=== PATIENT | male | born 1995 | race African-American/Black ===

== ENCOUNTER 2021-02-06 23:13 | Emergency (ER) | payer OTHER ==
[~2021-02-06] VITALS: Ht 167.6 cm; Wt 92.7 kg
[2021-02-06 23:14] VITALS: BP 138/83
--- NOTE | 2021-02-07 00:38 | REPVR ---
PROCEDURE INFORMATION: Exam: XR Right Shoulder Exam date and time: 02/06/2021 11:42 PM Age: 25 years old Clinical indication: Other: Numbness in shoulder; Additional info: Carrying 90 lbs on back and has pain in shoulder TECHNIQUE: Imaging protocol: XR Right shoulder. Views: 2 or more views. COMPARISON: No relevant prior studies available. FINDINGS: Bones/joints: Normal. Soft tissues: Normal. IMPRESSION: No acute findings. Electronically signed by: Jason Springer On 02/07/2021 00:38:22 AM
[2021-02-07] MEDS ORDERED: methocarbamoL 750 MG TAB PO ONE (01:50)
[2021-02-07] MEDS ORDERED: KETOROLAC 60MG 2ML VIAL IM ONE (01:50)
[2021-02-07] MEDS ORDERED: LIDOCAINE 5% (LIDODERM) PATCH TD ONE (01:50)
[2021-02-07] MEDS ORDERED: diazePAM 10 MG TAB PO ONE (01:50)
[2021-02-07] MEDS ORDERED: METH-1165 PO (01:52)
[2021-02-07] MEDS ORDERED: NAPR-837 PO (01:52)
[2021-02-07] MEDS ORDERED: ASPE4PAD TOP (01:52)
[2021-02-07] MEDS ORDERED: **NOTE PATIENT COMMENT** MISC XX SCH (21:00)
== END 2021-02-07 02:07 | disposition home or self-care (01) ==
LOC: M ED 23:13
DX: R53.1 Weakness (principal)
CPT/HCPCS: 73030; 99282; J1885

== ENCOUNTER 2022-12-27 01:27 | Emergency (ER) | payer OTHER ==
[~2022-12-27] VITALS: Ht 188 cm; Wt 90.9 kg
[~2022-12-27 01:27] MED LIST: ASPE4PAD TOP; METH-1165 PO; NAPR-837 PO
[2022-12-27 01:48] LABS: VENOUS HCO3 24.6 MEQ/L (23.0-27.0); VENOUS O2 SATURATION 94.3 % (60.0-80.0); VENOUS PARTIAL PRESSURE O2 76.4 mmHg (30.0-50.0); VENOUS PH 7.318 UNITS (7.330-7.430); VENOUS STANDARD HCO3 22.8 MEQ/L; VENOUS TOTAL CO2 26.1 MEQ/L (24.0-28.0)
[2022-12-27 01:58] LABS: BASO % 0.2 % (0.0-1.0); EOS # 0.1 10^3/uL (0.0-0.5); EOS % 0.6 % (0.0-3.0); HEMATOCRIT 38.7 % (42.0-52.0); HEMOGLOBIN 12.1 g/dl (13.5-17.5); LYMPH # 2.6 10^3/uL (1.5-5.0); LYMPH % 30.5 % (24.0-44.0); MEAN CORPUSCULAR HGB CONC 31.3 g/dl (32.0-36.5); MEAN CORPUSCULAR VOLUME 92.8 fl (80.0-96.0); MONO # 0.7 10^3/uL (0.0-0.8); NEUTROPHILS # 5.1 10^3/uL (1.5-8.5); NEUTROPHILS % 60.3 % (36.0-66.0); PLATELET COUNT, AUTOMATED 198 10^3/uL (150-450); RED BLOOD COUNT 4.17 10^6/uL (4.30-6.10); WHITE BLOOD COUNT 8.4 10^3/uL (4.0-10.0)
[2022-12-27 02:21] LABS: ETHYL ALCOHOL (ETHANOL) 0.005 % (0.000-0.010)
[2022-12-27 02:23] LABS: ACETAMINOPHEN LEVEL < 2.0 UG/ML (10.0-20.0); ALKALINE PHOSPHATASE 93 U/L (46-116); ALT/SGPT 28 U/L (7.0-40); AST/SGOT 26 U/L (<34); BILIRUBIN,DIRECT 0.1 MG/DL (<0.4); BILIRUBIN,TOTAL 0.4 MG/DL (0.3-1.2); BLOOD UREA NITROGEN 14 MG/DL (9-23); CALCIUM LEVEL 7.8 MG/DL (8.5-10.1); CARBON DIOXIDE LEVEL 25 MMOL/L (20-31); CHLORIDE LEVEL 109 MMOL/L (98-107); CREATININE FOR GFR 1.17 MG/DL (0.70-1.30); GLOMERULAR FILTRATION RATE > 60.0 (>60); GLUCOSE, FASTING 127 MG/DL (60-100); POTASSIUM SERUM 4.1 MMOL/L (3.5-5.1); SALICYLATE LEVEL < 3.0 MG/DL (<30); SODIUM LEVEL 140 MMOL/L (136-145); TOTAL PROTEIN 5.9 G/DL (5.7-8.2)
[2022-12-27 02:25] LABS: THYROID STIMULATING HORMONE 0.634 uIU/ML (0.55-4.78)
[2022-12-27 02:26] LABS: AMPHETAMINES LEVEL URINE NEGATIVE (NEGATIVE); BARBITURATES URINE NEGATIVE (NEGATIVE); BENZODIAZEPINES URINE NEGATIVE (NEGATIVE); COCAINE METABOLITE URINE NEGATIVE (NEGATIVE); PHENCYCLIDINE URINE NEGATIVE (NEGATIVE)
[2022-12-27 02:27] LABS: METHADONE URINE NEGATIVE (NEGATIVE); OPIATES URINE NEGATIVE (NEGATIVE)
[2022-12-27 02:32] LABS: CANNABINOIDS URINE POSITIVE (NEGATIVE)
[2022-12-27 02:35] LABS: RSV AMPLIFICATION NEGATIVE (NEGATIVE)
[2022-12-27 08:41] LABS: CK-MB VALUE MASS 1.2 NG/ML (<3.6)
[2022-12-27 08:50] LABS: CPK CREATINE PHOSPHOKINASE 318 U/L (46-171); MB/CK RELATIVE INDEX 0.37 (< OR =4)
[2022-12-27 09:12] LABS: CK-MB VALUE MASS < 1.0 NG/ML (<3.6)
[2022-12-27 09:22] LABS: CPK CREATINE PHOSPHOKINASE 285 U/L (46-171); MB/CK RELATIVE INDEX 0.35 (< OR =4)
[2022-12-27 11:22] VITALS: BP 124/60
== END 2022-12-27 11:23 | disposition home or self-care (01) ==
LOC: M ED 01:27
DX: F12.129 Cannabis abuse with intoxication, unspecified (principal); F19.10 Other psychoactive substance abuse, uncomplicated; Z79.1 Long term (current) use of non-steroidal anti-inflammatories (NSAID); Z79.899 Other long term (current) drug therapy

== ENCOUNTER 2023-12-29 21:08 | Emergency (ER) | payer OTHER ==
[~2023-12-29] VITALS: Ht 170.2 cm; Wt 98.7 kg
[2023-12-29 21:09] VITALS: BP 127/83; TEMP 99.6; O2SAT 97
[2023-12-29] MEDS ORDERED: LIDOCAINE 2% MDV 20ML VIAL As Ordered ONE (23:32)
[2023-12-29] MEDS ORDERED: LIDOCAINE 2% MDV 20ML VIAL SC ONE (23:35)
[2023-12-30] MEDS: NEOSPORIN OINT 0.9 GM PKT TOP ONE (00:20)
== END 2023-12-30 00:22 | disposition home or self-care (01) ==
LOC: M ED 21:08
DX: S01.01XA Laceration without foreign body of scalp, initial encounter (principal); Y92.830 Public park as the place of occurrence of the external cause; Y93.9 Activity, unspecified; Y99.9 Unspecified external cause status; W50.0XXA Accidental hit or strike by another person, initial encounter